=== PATIENT | male | born 1970 | race Caucasian/White ===

== ENCOUNTER 2016-08-20 10:45 | Emergency (ER) | payer SELFPAY ==
--- NOTE | 2016-08-20 12:46 | ED Physician Documentation ---
Sore Throat/Dental Pain - HISTORIAN Historian: patient - HPI Stated Complaint: dental pain Chief Complaint: Dental Pain Additional Information: x years, worse today Onset: other (years) Context: Fractured Tooth Worsened By: cold Relieved By: nothing, ibuprofen had been working but now no longer does Further Comments: no - ROS CONST: no problems CVS/RESP: none GI/: denies: problems urinating, nausea, vomiting MS/SKIN/LYMPH: denies: muscle aches, rash, leg swelling, ankle swelling NEURO/PSYCH: none - PAST HX Past History: none Other History: none Allergies/Adverse Reactions: Allergies Allergy/AdvReac Type Severity Reaction Status Date / Time No Known Allergies Allergy Verified 08/20/16 11:35 Home Medications: Ambulatory Orders Medication Instructions Recorded NK [NK] 08/29/15 - SOCIAL HX Smoking History: non-smoker Alcohol Use: none Drug Use: none - FAMILY HX Family History: No - VITAL SIGNS Vital Signs: Vital Signs Temp Pulse Resp BP Pulse Ox 98.3 F 69 18 134/56 100 08/20/16 11:00 08/20/16 11:00 08/20/16 11:00 08/20/16 11:00 08/20/16 11:00 - REVIEWED ASSESSMENTS Nursing Assessment Reviewed: Yes Vitals Reviewed: Yes Progress - Results/Orders Results/Orders: no testing ordered - Progress Progress: pt. stable entire time in er Critical Care Note - Critical Care Note Total Time (mins): 0 ED Results Lab/Radiology - Lab Results Lab Results: none taken - Radiology Radiology Impressions: none taken Dental Pain Physical Exam - EXAM General Appearance: alert, moderate distress Head/Neck: head nml inspection, trachea midline, no lymphadenopathy, thyroid nml. No: pain over sinuses, mandibular swelling (R), mandibular swelling (L), maxillary swelling (R), maxillary swelling (L), facial erythema, cervical lymphadenopathy Eyes: eyes nml inspection, PERRL Mouth/Throat: lips nml, gums nml, pharynx nml, voice nml, other (broken tooth left upper 2nd molar with empty socket and some edema gums) Ear/Nose: nml inspection Respiratory: no resp. distress, breath sounds nml CVS: reg. rate & rhythm, heart sounds nml Abdomen: soft, no organomegaly, normal bowel sounds, no abdominal bruit, no distension Extremities: non-tender, nml ROM Skin: warm/dry, normal color Neuro/Psych: No: weakness, numbness, anxiety, depression Discharge Clincal Impression: Dental caries Referrals: Primary Doctor,No [Primary Care Provider] - 2 Days Home Medications: Ambulatory Orders NK [NK] 08/29/15 Comments: discharged with scripts for amoxicillin, prednisone taper and tizanidine Condition: Stable Disposition: 01 HOME, SELF-CARE Decision to Admit: NO Decision Time: 12:45
[2016-08-20 12:50] VITALS: BP 128/62
== END 2016-08-20 12:45 | disposition home or self-care (01) ==
LOC: ED 10:45
DX: K02.9 Dental caries, unspecified (principal)
CPT/HCPCS: 99283

== ENCOUNTER 2017-11-02 13:00 | Emergency (ER) | payer SELFPAY ==
--- NOTE | 2017-11-02 13:23 | ED Physician Documentation ---
Ear Complaints - HISTORIAN Historian: patient - HPI Chief Complaint: Ear Complaints Additional Information: Patient states that he has developed some left pain. Hearing seems to be OK. About 2 weeks ago had similar pain but it went away spontaneously. When he turns his head to the left or bends over the pain gets worse. Timing: still present Associated Symptoms: denies: fever, chills Further Comments: no - PAST HX Past History: none Immunizations: referred to PCP Allergies/Adverse Reactions: Allergies Allergy/AdvReac Type Severity Reaction Status Date / Time No Known Allergies Allergy Verified 11/02/17 13:16 Home Medications: Ambulatory Orders Medication Instructions Recorded Tramadol HCl [Ultram] 50 mg PO Q6 PRN #20 tablet 11/02/17 - SOCIAL HX Smoking History: non-smoker - FAMILY HX Family History: No - VITAL SIGNS Vital Signs: Vital Signs Temp Pulse Resp BP Pulse Ox 128/62 08/20/16 12:49 - REVIEWED ASSESSMENTS Nursing Assessment Reviewed: No Vitals Reviewed: No Ear Complaint Physical Exam - EXAM General Appearance: no acute distress, alert Ear: auricle nml, pneumatic tester.canal nml. No: erythema, mastoid tenderness, mastoid swelling, swelling of canal, material in canal Mouth/Throat: lips nml, gums nml, pharynx nml, dental caries. No: dental tenderness, pharyngeal erythema Nose: nml inspection Head/Neck: atraumatic, neck nml inspection. No: facial swelling, facial erythema, cervical lymphadenopathy Resp/CVS: chest non-tender, breath sounds nml, heart sounds nml, no resp. distress, lungs clear, reg. rate & rhythm. No: wheezes, rales, rhonchi Abdomen: non-tender Skin: nml color, no skin rash Neuro/Psych: oriented x3, mood/affect nml. No: depressed mood/affect Discharge Clincal Impression: Ear pain, left Prescriptions: Tramadol HCl [Ultram] 50 mg PO Q6 PRN #20 tablet PRN Reason: Pain Referrals: Primary Doctor,No [Primary Care Provider] - 2 Days Additional Instructions: Take some Kerri and or Mucinex. Take tramadol as needed for pain. If symptoms are not improving in the next 2 days to see your priry care provider. If you start to have some hearing difficuties or tinnitus to return tot he ED. Condition: Stable Disposition: 01 HOME, SELF-CARE Decision to Admit: NO Date of Decison to Admit: 11/02/17 Decision Time: 13:25
[2017-11-02] MEDS: KETOROLAC TROMETHAMINE 60 MG/2 ML VIAL IM ONE (13:37)
[2017-11-02 14:45] VITALS: BP 124/86
== END 2017-11-02 13:59 | disposition home or self-care (01) ==
LOC: ED 13:00
DX: H92.02 Otalgia, left ear (principal)
CPT/HCPCS: 96372; 99283; J1885